=== PATIENT | female | born 1970 | race Caucasian/White ===

== ENCOUNTER 2019-04-01 16:17 | Emergency (ER) | payer OTHER ==
[~2019-04-01] VITALS: Ht 160 cm; Wt 68.0 kg
[2019-04-01] MEDS ORDERED: LEVSOD100 PO ×2 (17:21→17:45)
[2019-04-01] MEDS ORDERED: MELO7.5 PO (17:45)
== END 2019-04-01 17:51 | disposition home or self-care (01) ==
LOC: ER 16:17
DX: Z76.0 Encounter for issue of repeat prescription (principal); Z88.8 Allergy status to other drugs, medicaments and biological substances; Z79.899 Other long term (current) drug therapy; F17.200 Nicotine dependence, unspecified, uncomplicated
CPT/HCPCS: 99281